=== PATIENT | male | born 1965 ===

== ENCOUNTER 2025-09-19 06:46 | Day surgery (SDC) | payer OTHER, SELFPAY ==
[2025-09-19] VITALS (9 sets, daily range): BP systolic 122–143; BP diastolic 71–85; BMI 27.8
[2025-09-19] MEDS: NORMOSOL-R/PLASMALYTE-A 1000 IV (06:59)
== END 2025-09-19 11:45 | disposition home or self-care (01) ==
LOC: SDS 06:46
PROVIDERS: ATTENDING PHYSICIAN Orthopaedic Surgery Hand Surgery
DX: M75.101 Unspecified rotator cuff tear or rupture of right shoulder, not specified as traumatic (principal)
CPT/HCPCS: 29827; 29826; C1713; C1763